=== PATIENT | female | born 1935 | race Caucasian/White ===

== ENCOUNTER 2017-11-02 19:47 | Observation (INO) ==
[2017-11-02 21:07] LABS: Albumin/Globulin Ratio 1.3 (1.1-2.2); Bilirubin,Total 0.4 mg/dL (0.3-1.0); Calcium 9.8 mg/dL (8.6-10.3); Globulin 3.2 g/dL (2.4-3.5); Potassium 4.3 mEq/L (3.5-5.1); Total Protein 7.2 g/dL (6.4-8.9)
[2017-11-02 21:21] LABS: Basophils % 0.3 %; Eosinophils # 0.2 K/mcL (0.0-0.6); Eosinophils % 1.8 %; Hematocrit 39.3 % (35.3-44.9); Hemoglobin 12.6 g/dL (11.5-15.4); Immature Granulocytes % 1.2 % (0-4); Lymphocytes # 1.9 K/mcL (0.6-4.6); Mean Corpuscular HGB Conc 32.1 g/dL (31.6-35.5); Mean Corpuscular Hemoglobin 31.3 pg (28.0-33.3); Mean Corpuscular Volume 97.8 fL (83.0-100.0); Mean Platelet Volume 11.2 fL (9.4-12.4); Monocytes # 0.5 K/mcL (0.0-1.3); Monocytes % 5.9 %; Neutrophils # 6.1 K/mcL (1.6-8.9); Platelet Count 224 K/mcL (140-400); Red Blood Count 4.02 M/mcL (3.82-4.97); Red Cell Distribution Width 18.1 % (11.5-14.5); Segmented Neutrophils % 68.8 %
[2017-11-02 21:22] LABS: Bilirubin,Urine Negative (Negative); Blood,Urine Trace (Negative); Clarity,Urine Cloudy (Clear); Color,Urine Yellow (Yellow); Glucose,Urine (UA) Normal (Normal); Ketones,Urine Negative (Negative); Leukocyte Esterase,Urine Small (Negative); Nitrite,Urine Negative (Negative); PH,Urine 5.5 pH Units (5.0-8.0); Protein,Urine >=300 mg/dL (Neg-Trace); Specific Gravity,Urine 1.022 (1.010-1.025); Urobilinogen,Urine Normal (Normal)
[2017-11-02 21:24] LABS: Bacteria,Urine None Seen per hpf (None-Few); RBC,Urine 0-3 per hpf (0-3); Squamous Epithelial Cell,Urine Many per lpf (None-Few); WBC,Urine 30-50 per hpf (0-3)
[2017-11-02 21:38] LABS: Amorphous Sediment,Urine Many (Few)
[2017-11-02] MEDS ORDERED: 0.9 % Sodium Chloride 1,000 ML IVC ONE (22:54)
[2017-11-03] MEDS ORDERED: Acetaminophen 325 MG TABLET PO PRN (01:17)
[2017-11-03] MEDS ORDERED: *HR* HYDROcodone/Acet 5/325 mg TABLET PO PRN (01:17)
[2017-11-03] MEDS ORDERED: Naloxone 0.4 MG/ML INJ IVP PRN (01:17)
[2017-11-03] MEDS ORDERED: 0.9 % Sodium Chloride 1,000 ML IVC SCH (01:30)
--- NOTE | 2017-11-03 01:34 | Internal Med History&Physical ---
Date of Encounter: 11/02/17 Time of Encounter: 23:00 Assessment and Plan (1) Syncope Current visit: Yes Status: Acute Place the pt into Tele for observation Recent syncopal episode could be due to dehydration related ortho static and vaso vagal reaction however concerning for arrhythmia / josue cardia EKG ordered Reviewed 2 D Echo from 09/20 showed preserved LVEF 60-65%, mild LVH noticed will check carotid doppler will get CT of head with no contrast check TSH level Held Metoprolol and Digoxin check Dig level Qualifiers: Qualified Code(s): R55 - Syncope and collapse (2) Bradycardia Current visit: Yes Status: Acute on the monitor her HR is fluctuating 45-55 held BB Metoprolol Held Digoxin cont close monitoring (3) Dehydration Current visit: Yes Status: Acute started on IV hydration (4) Constipation Current visit: Yes Status: Acute Reviewed CT of Abd showed constipation.. started on stool softeners Qualifiers: Constipation type: unspecified constipation type Qualified Code(s): K59.00 - Constipation, unspecified (5) [id number] kidney injury Current visit: No Status: Acute slightly elevated Cr @ 2.70 her baseline around 2.0 Held diuretics Bumex Avoid any nephrotoxic medication Qualifiers: Acute renal failure type: unspecified Chronic kidney disease stage: stage 4 (severe) Qualified Code(s): N17.9 - Acute kidney failure, unspecified; N18.4 - Chronic kidney disease, stage 4 (severe); N18.4 - Chronic kidney disease , stage 4 (severe); N18.4 - Chronic kidney disease, stage 4 (severe); N18.4 - Chronic kidney disease, stage 4 (severe) (6) DM type 2 (diabetes mellitus, type 2) Current visit: No Status: Chronic on ISS Qualifiers: Diabetes mellitus ferry terminal agent insulin use: without ferry terminal agent use Diabetes mellitus complication status: with kidney complications Diabetes mellitus complication detail: with chronic kidney disease Chronic kidney disease stage : stage 4 (severe) Qualified Code(s): E11.22 - Type 2 diabetes mellitus with diabetic chronic kidney disease; N18.4 - Chronic kidney disease, stage 4 (severe ); N18.4 - Chronic kidney disease, stage 4 (severe); N18.4 - Chronic kidney disease, stage 4 (severe); N18.4 - Chronic kidney disease, stage 4 (severe) (7) HTN (hypertension) Current visit: No Status: Chronic fairly controlled Held BB due to bradycardia will give Hydralazine PRN Qualifiers: Hypertension type: essential hypertension Qualified Code(s): I10 - Essential (primary) hypertension (8) Hyperlipidemia Current visit: No Status: Chronic Qualifiers: Hyperlipidemia type: unspecified Qualified Code(s): E78.5 - Hyperlipidemia , unspecified (9) Hypothyroidism Current visit: No Status: Chronic on levothyroxine Qualifiers: Hypothyroidism type: unspecified Qualified Code(s): E03.9 - Hypothyroidism , unspecified Internal Medicine - H&P: HPI Chief complaint: Constipation / generelized weakness / Syncope Admitted From: Emergency Dept Plans for Post Hospital Care: Home History of present illness: Ms. Flowers is a 82 year old female with known past medical history of hypertension, hyperlipidemia, hypothyroidism, diastolic congestive heart failure , chronic hypoxic respiratory failure, COPD, diabetes type II, CK D stage III and DVT currently on Coumadin for anticoagulation who is currently at rehab center was brought into the ER by EMS stating that patient has been having generalized weakness, lethargic and constipation from last 2 to 3 days. She also looks little confused today. Patient denied of any chest pain and shortness of breath. She does complaining about low back pain. Patient is alert, awake and Oriented to place and person. Patient's family at bedside, according to patient's family from last 6-8 months patient physical condition seems to be rapidly deteriorating. They also mentioned she had a syncopal episode a week ago at rehab center, and they are planning on doing elective CT of the head. Past Med Surg Social Fam HX - Past Medical History Medical history: arthritis, asthma, CHF, diabetes, GERD, hyperlipidemia, hypertension, renal disease, thyroid disease Psychiatric history: no psych history - Past Surgical History Surgical History: orthopedic, other - Social History Smoking Status: Never smoker Smokeless Tobacco Status: No Alcohol use: none Drug use: none - Family History Mother Adopted: No Family Member Ethnicity: Non- Living Status: Hx Family Cardiac Disorders: Yes Internal Medicine - H&P: Meds Allopurinol 300 mg PO DAILY 04/01/17 [History] Cranberry Conc/C/Bacill Coag [Cranberry Tablet] 1 each PO DAILY 04/01/17 [ History] Atorvastatin [Lipitor] 80 mg PO DAILY tab 04/08/17 [Rx] Cholecalciferol (D-3) [Vitamin D] 1,000 unit PO DAILY tab 04/08/17 [Rx] Digoxin [Lanoxin] 0.125 mg PO QOD #15 tab 04/22/17 [Rx] Doxazosin [Cardura] 8 mg PO HS #60 tablet 04/22/17 [Rx] MOM Conc [MILK OF MAGNESIA conc] 10 ml PO Q48H ud.liq 08/12/17 [Rx] Methyl Salicylate/Menthol [Bengay] 1 appl TP BID PRN tube 08/12/17 [Rx] Gabapentin [Neurontin] 100 mg PO BID capsule 08/29/17 [Rx] Acetaminophen [Tylenol] 500 mg PO Q6HR PRN 09/27/17 [History] Bumetanide [Bumex] 2 mg PO BIDDIURETIC tablet 09/27/17 [Rx] Isosorbide MONOnitrate (24 HR) [Imdur] 60 mg PO DAILY tab.er.24h 09/27/17 [Rx] Levothyroxine [Synthroid] 100 mcg PO DAILY@0630 tablet 09/27/17 [Rx] Metoprolol XL (24 HR) Succ [Toprol Xl] 25 mg PO DAILY tab.er.24h 09/27/17 [Rx] Omeprazole [PriLOSEC] 20 mg PO DAILY@0630 PRN capsule.dr 09/27/17 [Rx] HYDROcodone/Acet 5/325 mg [[place] 5-325 mg] 1 tab PO Q4HR PRN 14 Days #60 tablet 10/02/17 [Rx] Warfarin [Coumadin] 1.5 mg PO DAILY@1800 #0 tablet 10/02/17 [Rx] cloNIDine HCl [CloNIDine HCl] 0.6 mg PO Q8HR tablet 10/02/17 [Rx] 3 Allergy/AdvReac Type Severity Reaction Status Date / Time ibuprofen [From Motrin IB] AdvReac Hives Verified 03/31/17 09:24 Sulfa (Sulfonamide AdvReac Hives Verified 03/31/17 09:24 Antibiotics) All Systems PM: A 10-system review of systems was performed and is negative for pertinent findings except as documented above in the HPI. Review of systems: All the systems are reviewed everything is benign except the systems and symptoms I mentioned in the history of present illness - Constitutional Vitals: Temp Pulse Resp BP Pulse Ox 97.7 F 41 16 179/66 99 11/02/17 23:57 11/02/17 23:57 11/02/17 23:57 11/02/17 23:57 11/02/17 23:57 General appearance: Present: A&O X 3, answers questions appropriately Exam: Looks depressed, weak and very lethargic - Head Head exam: Present: atraumatic, normal inspection - Neck Neck exam general surgery: Present: supple - Respiratory Respiratory exam: Present: decreased breath sounds. Absent: rales, respiratory distress, rhonchi, wheezes - Cardiovascular Cardiovascular exam: Present: bradycardia, +S1, +S2. Absent: systolic murmur - GI/Abdominal GI/Abdominal exam: Present: normal bowel sounds, soft, tenderness (Mild discomfort in the lower abdomen region). Absent: rebound, rigid - Extremities Exam Extremities exam: Absent: calf tenderness, pedal edema, tenderness - Back Exam Back exam: Absent: CVA tenderness (L), CVA tenderness (R) - Neurological Exam Neurological exam: Present: alert, CN II-XII intact, oriented X3. Absent: pronater drift, facial droop, speech deficit - Psychiatric Psychiatric exam: Present: depressed - Skin Skin exam: Absent: rash Internal Med - H&P Results - Labs CBC & Chem 7: 11/03/17 01:42 11/03/17 01:42
[2017-11-03] MEDS: Sennosides/Docusate Sodium TABLET PO SCH ×3 (01:43→20:12)
[2017-11-03 01:52] LABS: Basophils % 0.3 %; Eosinophils # 0.2 K/mcL (0.0-0.6); Eosinophils % 2.4 %; Hematocrit 35.3 % (35.3-44.9); Hemoglobin 11.3 g/dL (11.5-15.4); Immature Granulocytes % 1.4 % (0-4); Lymphocytes # 2.1 K/mcL (0.6-4.6); Lymphocytes % 24.1 %; Mean Platelet Volume 11.2 fL (9.4-12.4); Monocytes # 0.6 K/mcL (0.0-1.3); Monocytes % 6.7 %; Neutrophils # 5.7 K/mcL (1.6-8.9); Platelet Count 203 K/mcL (140-400); Red Blood Count 3.64 M/mcL (3.82-4.97); Segmented Neutrophils % 65.1 %
[2017-11-03 01:57] LABS: INR 3.4; Prothrombin Time 37.3 Seconds (9.4-12.1)
[2017-11-03 02:13] LABS: BUN/Creatinine Ratio 29 (6-26); Blood Urea Nitrogen 71 mg/dL (8-23); Calcium 9.2 mg/dL (8.6-10.3); Carbon Dioxide 29 mEq/L (23-29); Chloride 102 mEq/L (98-107); Chol/HDL Ratio 8.1 (0-4.9); Cholesterol 153 mg/dL (< 200); Glucose 120 mg/dL (70-105); HDL Cholesterol 19 mg/dL (40-59); Magnesium 2.2 mg/dL (1.6-2.6); Osmolality,Calculated 312 (280-300); Sodium 140 mEq/L (136-145); Triglycerides 463 mg/dL (< 150); eGFR For African Americans 23 (> 60); eGFR For Non-African Americans 19 (> 60)
[2017-11-03 03:53] LABS: Thyroid Stimulating Hormone 0.537 mcIU/mL (0.340-5.600)
[2017-11-03] MEDS: Ondansetron 4 MG/2 ML VIAL IVP PRN (05:41)
--- NOTE | 2017-11-03 06:12 | Emergency Department Note ---
Disposition Clinical Impression: DOMINIQUE (acute kidney injury) Disposition: Admitted As Inpatient Condition: Good General Adult HPI - General Chief complaint: ED Abdominal Pain Stated complaint: abd pain Time Seen by Provider: 11/02/17 19:59 Source: patient, EMS Nursing Notes Reviewed: Yes Vital Signs Reviewed: Yes - History of Present Illness HPI Narrative: This is a 82-year-old female patient presents with concern for abdominal pain. She admits that her onset of abdominal pain was earlier today. She has not had a bowel movement in approximately one week. She admits to constipation. She also has had intermittent confusion. She does have chronic kidney disease. She has normal urinary output. She has no blood per rectum or vomiting. General: No acute distress HEENT: Pupils equal and reactive to light, extraoccular muscle movement is normal, TMS are clear bilaterally. Heart: RRR, No murmor rub or gallop Lungs: lungs clear, no wheezing, rales or ronchi. ABD: SNT, no focal areas or tenderness, no guarding or rebound tenderness. Extremities: No cyanosis, clubbing or edema Neuro: CN 2-12 in tact, no focal deficit. strength 5/5. Medical decision making Abdominal examination is non-peritoneal. There is moderate stool burning on CT scan. This is a by mouth contrast only CT scan of the patient has history of present illness. I think her intermittent confusion is related to worsening uremia. BUN is significantly elevated. Kidney function is also elevated. Plan to admit to the hospital after initiation of IV fluids for renal resuscitation. Pain Scale: 0 - Related Data Home Medications Medication Instructions Recorded Confirmed Allopurinol 300 mg PO DAILY 04/01/17 09/27/17 Cranberry Conc/C/Bacill Coag 1 each PO DAILY 04/01/17 09/27/17 [Cranberry Tablet] Acetaminophen [Tylenol] 500 mg PO Q6HR PRN 09/27/17 09/27/17 Previous Rx's Medication Instructions Recorded Atorvastatin [Lipitor] 80 mg PO DAILY tab 04/08/17 Cholecalciferol (D-3) [Vitamin D] 1,000 unit PO DAILY tab 04/08/17 Digoxin [Lanoxin] 0.125 mg PO QOD #15 tab 04/22/17 Doxazosin [Cardura] 8 mg PO HS #60 tablet 04/22/17 MOM Conc [MILK OF MAGNESIA conc] 10 ml PO Q48H ud.liq 08/12/17 Methyl Salicylate/Menthol [Bengay] 1 appl TP BID PRN tube 08/12/17 Gabapentin [Neurontin] 100 mg PO BID capsule 08/29/17 Bumetanide [Bumex] 2 mg PO BIDDIURETIC tablet 09/27/17 Isosorbide MONOnitrate (24 HR) 60 mg PO DAILY tab.er.24h 09/27/17 [Imdur] Levothyroxine [Synthroid] 100 mcg PO DAILY@0630 tablet 09/27/17 Metoprolol XL (24 HR) Succ [Toprol 25 mg PO DAILY tab.er.24h 09/27/17 Xl] Omeprazole [PriLOSEC] 20 mg PO DAILY@0630 PRN capsule.dr 09/27/17 HYDROcodone/Acet 5/325 mg [[place] 1 tab PO Q4HR PRN 14 Days #60 10/02/17 5-325 mg] tablet Warfarin [Coumadin] 1.5 mg PO DAILY@1800 #0 tablet 10/02/17 cloNIDine HCl [CloNIDine HCl] 0.6 mg PO Q8HR tablet 10/02/17 Allergies Allergy/AdvReac Type Severity Reaction Status Date / Time ibuprofen [From Motrin IB] AdvReac Hives Verified 03/31/17 09:24 Sulfa (Sulfonamide AdvReac Hives Verified 03/31/17 09:24 Antibiotics) All systems ED: reviewed and negative except as stated. Past Medical History - Past Medical History Medical history: Reports: arthritis, asthma, CHF, diabetes, GERD, hyperlipidemia , hypertension, renal disease, thyroid disease Surgical history: Reports: orthopedic, other Psychiatric history: Reports: no psych history - Social History Smoking Status: Never smoker Smokeless Tobacco Status: No Alcohol use: Reports: none Drug use: Reports: none Physical Exam - General General appearance: alert Course Vital Signs Temperature 97.9 F 11/02/17 19:53 Pulse Rate 60 11/02/17 19:53 Respiratory Rate 18 11/02/17 19:53 Blood Pressure 138/74 11/02/17 19:53 O2 Sat by Pulse Oximetry 99 11/02/17 19:53 Temperature 97.7 F 11/03/17 04:12 Pulse Rate 52 11/03/17 04:12 Respiratory Rate 16 11/03/17 04:12 Blood Pressure 148/63 11/03/17 04:12 O2 Sat by Pulse Oximetry 99 11/03/17 04:12 Oxygen Delivery Oxygen Delivery Room Air Medical Decision Making - Lab Data Result diagrams: 11/03/17 01:42 11/03/17 01:42 Lab Results 11/02/17 11/02/17 11/02/17 Range/Units 20:38 20:54 20:54 WBC 8.8 (4.3-11.1) K/mcL RBC 4.02 (3.82-4.97) M/mcL Hgb 12.6 (11.5-15.4) g/dL Hct 39.3 (35.3-44.9) % MCV 97.8 (83.0-100.0) fL MCH 31.3 (28.0-33.3) pg MCHC 32.1 (31.6-35.5) g/dL RDW 18.1 H (11.5-14.5) % Plt Count 224 (140-400) K/mcL MPV 11.2 (9.4-12.4) fL Immature Gran % 1.2 (0-4) % Seg Neutrophils % 68.8 % Lymphocytes % 22.0 % Monocytes % 5.9 % Eosinophils % 1.8 % Basophils % 0.3 % Neutrophils # 6.1 (1.6-8.9) K/mcL Lymphocytes # 1.9 (0.6-4.6) K/mcL Monocytes # 0.5 (0.0-1.3) K/mcL Eosinophils # 0.2 (0.0-0.6) K/mcL Basophils # 0.0 (0.0-0.2) K/mcL Sodium 138 (136-145) mEq/L Potassium 4.3 (3.5-5.1) mEq/L Chloride 100 (98-107) mEq/L Carbon Dioxide 29 (23-29) mEq/L BUN 75 H (8-23) mg/dL Creatinine 2.70 H (0.60-1.20) mg/dL Est GFR ( Amer) 21 L (> 60) Est GFR (Non-Af Amer) 17 L (> 60) BUN/Creatinine Ratio 28 H (6-26) Glucose 129 H (70-105) mg/dL Calculated Osmolality 310 H (280-300) Lactic Acid 1.2 (0.5-2.2) mmol/L Calcium 9.8 (8.6-10.3) mg/dL Total Bilirubin 0.4 (0.3-1.0) mg/dL AST 19 (13-39) Units/L ALT 12 (7-52) Units/L Alkaline Phosphatase 92 (34-104) Units/L Serum Total Protein 7.2 (6.4-8.9) g/dL Albumin 4.0 (3.5-5.7) g/dL Globulin 3.2 (2.4-3.5) g/dL Albumin/Globulin Ratio 1.3 (1.1-2.2) Lipase 39 (11-82) Units/L Urine Color (Yellow) Urine Clarity (Clear) Urine pH (5.0-8.0) pH Units Ur Specific [place] (1.010-1.025) Urine Protein (Neg-Trace) mg/dL Urine Glucose (UA) (Normal) mg/dL Urine Ketones (Negative) mg/dL Urine Blood (Negative) Urine Nitrite (Negative) Urine Bilirubin (Negative) Urine Urobilinogen (Normal) mg/dL Ur Leukocyte Esterase (Negative) Urine Microscopic RBC (0-3) per hpf Urine Microscopic WBC (0-3) per hpf Ur Squamous Epith Cells (None-Few) per lpf Amorphous Sediment (Few) Urine Bacteria (None-Few) per hpf Ur Culture Indicated? (NO) 11/02/17 Range/Units 21:10 WBC (4.3-11.1) K/mcL RBC (3.82-4.97) M/mcL Hgb (11.5-15.4) g/dL Hct (35.3-44.9) % MCV (83.0-100.0) fL MCH (28.0-33.3) pg MCHC (31.6-35.5) g/dL RDW (11.5-14.5) % Plt Count (140-400) K/mcL MPV (9.4-12.4) fL Immature Gran % (0-4) % Seg Neutrophils % % Lymphocytes % % Monocytes % % Eosinophils % % Basophils % % Neutrophils # (1.6-8.9) K/mcL Lymphocytes # (0.6-4.6) K/mcL Monocytes # (0.0-1.3) K/mcL Eosinophils # (0.0-0.6) K/mcL Basophils # (0.0-0.2) K/mcL Sodium (136-145) mEq/L Potassium (3.5-5.1) mEq/L Chloride (98-107) mEq/L Carbon Dioxide (23-29) mEq/L BUN (8-23) mg/dL Creatinine (0.60-1.20) mg/dL Est GFR ( Amer) (> 60) Est GFR (Non-Af Amer) (> 60) BUN/Creatinine Ratio (6-26) Glucose (70-105) mg/dL Calculated Osmolality (280-300) Lactic Acid (0.5-2.2) mmol/L Calcium (8.6-10.3) mg/dL Total Bilirubin (0.3-1.0) mg/dL AST (13-39) Units/L ALT (7-52) Units/L Alkaline Phosphatase (34-104) Units/L Serum Total Protein (6.4-8.9) g/dL Albumin (3.5-5.7) g/dL Globulin (2.4-3.5) g/dL Albumin/Globulin Ratio (1.1-2.2) Lipase (11-82) Units/L Urine Color Yellow (Yellow) Urine Clarity Cloudy A (Clear) Urine pH 5.5 (5.0-8.0) pH Units Ur Specific [place] 1.022 (1.010-1.025) Urine Protein >=300 H (Neg-Trace) mg/dL Urine Glucose (UA) Normal (Normal) mg/dL Urine Ketones Negative (Negative) mg/dL Urine Blood Trace H (Negative) Urine Nitrite Negative (Negative) Urine Bilirubin Negative (Negative) Urine Urobilinogen Normal (Normal) mg/dL Ur Leukocyte Esterase Small H (Negative) Urine Microscopic RBC 0-3 (0-3) per hpf Urine Microscopic WBC 30-50 H (0-3) per hpf Ur Squamous Epith Cells Many H (None-Few) per lpf Amorphous Sediment Many H (Few) Urine Bacteria None Seen (None-Few) per hpf Ur Culture Indicated? NO. (NO)
[2017-11-03] MEDS: *HR* Promethazine 25 MG/ML VIAL IVP PRN (08:50)
[2017-11-03] MEDS: Isosorbide MONOnitrate (24 HR) 60 MG TAB.ER.24H PO SCH (08:54)
[2017-11-03] MEDS: Gabapentin 100 MG CAPSULE PO SCH ×2 (08:54→20:12)
--- NOTE | 2017-11-03 11:02 | Internal Med Progress Note ---
Date of Encounter: 11/03/17 Time of Encounter: 11:09 - Assessment and plan (1) DM type 2 (diabetes mellitus, type 2) Current Visit: Yes Status: Chronic Assessment and plan: continue sliding scale patient is NPO Qualifiers: Diabetes mellitus fpc insulin use: without fpc use Diabetes mellitus complication status: with kidney complications Diabetes mellitus complication detail: with chronic kidney disease Chronic kidney disease stage : stage 4 (severe) Qualified Code(s): E11.22 - Type 2 diabetes mellitus with diabetic chronic kidney disease; N18.4 - Chronic kidney disease, stage 4 (severe ); N18.4 - Chronic kidney disease, stage 4 (severe); N18.4 - Chronic kidney disease, stage 4 (severe); N18.4 - Chronic kidney disease, stage 4 (severe) (2) Hypothyroidism Current Visit: Yes Status: Chronic Assessment and plan: continue home meds Qualifiers: Hypothyroidism type: unspecified Qualified Code(s): E03.9 - Hypothyroidism , unspecified (3) Hyperlipidemia Current Visit: Yes Status: Chronic Assessment and plan: continue home meds, lipid panel noted, uncontrolled Qualifiers: Hyperlipidemia type: unspecified Qualified Code(s): E78.5 - Hyperlipidemia , unspecified (4) Efvjx-[id number]-rqwlycv kidney injury Current Visit: Yes Status: Acute Assessment and plan: Improving, continue IVF. Hx of CKD III, continue to hold diuretics Qualifiers: Acute renal failure type: unspecified Chronic kidney disease stage: stage 4 (severe) Qualified Code(s): N17.9 - Acute kidney failure, unspecified; N18.4 - Chronic kidney disease, stage 4 (severe); N18.4 - Chronic kidney disease , stage 4 (severe); N18.4 - Chronic kidney disease, stage 4 (severe); N18.4 - Chronic kidney disease, stage 4 (severe) (5) HTN (hypertension) Current Visit: No Status: Chronic Qualifiers: Hypertension type: essential hypertension Qualified Code(s): I10 - Essential (primary) hypertension (6) Syncope Current Visit: Yes Status: Acute Assessment and plan: continue tele EKG not found on chart, patient is bradycardic, obtain EKG Reviewed 2 D Echo from 09/20 showed preserved LVEF 60-65%, mild LVH noticed Carotid doppler is pending TSH is WNL Follow remaining work up Head CT is negative Qualifiers: Syncope type: unspecified Qualified Code(s): R55 - Syncope and collapse (7) Bradycardia Current Visit: Yes Status: Acute Assessment and plan: HR is acceptable ebtween 40-61 Continue home emds Digoixn level is 1.0 (8) Constipation Current Visit: Yes Status: Chronic Assessment and plan: FOund on CT Continue stool softeners Qualifiers: Constipation type: unspecified constipation type Qualified Code(s): K59.00 - Constipation, unspecified (9) Dysphagia Current Visit: Yes Status: Acute Assessment and plan: Patient also has a history of dysphagia and underwent a barium swallow prior to admission on secondary panel, reports show severe esophageal pathology, rotation and retropulsion of dye throughout the esophagus with high risk for aspiration. There is a stricture/narrowing and above that the esophagus is dilated to 10. Dysmotility is also evident. She has a history of esophageal stricture status post dilatation in the remote past. We will consult gastroenterology NPO from now till GI eval. Qualifiers: Dysphagia type: pharyngoesophageal phase Qualified Code(s): R13.14 - Dysphagia, pharyngoesophageal phase - Time Spent With Patient Total time spent is greater than 50% in coordination of care (as documented) at patient's floor/unit and/or counseling patient: - Subjective Interval history: Seen and evaluated at the bedside. 10-year-old female resident who is admitted for syncope, constipation, acute on chronic kidney injury, and bradycardia. It is not certain if her bradycardia symptomatic. No syncope associated bradycardia. Heart rate since admission has ranged from 40 once a 51. Admitting team had held her digoxin and metoprolol. Patient has a very flat affect on evaluation, speaks minimally, however she noticed a year, the president, and is oriented to person. - Constitutional Vitals: Temp Pulse Resp BP Pulse Ox 98.1 F 51 16 153/61 98 11/03/17 06:50 11/03/17 06:50 11/03/17 06:50 11/03/17 06:50 11/03/17 06:50 General appearance: Present: A&O X 3, no acute distress, answers questions appropriately - Head Head exam: Present: atraumatic, normocephalic - Eye Eye exam: Present: PERRL, conjuntiva pink, sclera anicteric Pupils: Present: PERRL - Neck Neck exam general surgery: Present: supple, trachea midline. Absent: lymphadenopathy - Respiratory Respiratory exam: Present: CTAB. Absent: accessory muscle use, rales, rhonchi, wheezes - Cardiovascular Cardiovascular exam: Present: bradycardia, +S1, +S2. Absent: diastolic murmur, gallop, rubs, systolic murmur - GI/Abdominal GI/Abdominal exam: Present: normal bowel sounds, soft, no peritoneal signs. Absent: distended, tenderness - Extremities Exam Extremities exam: Present: warm, radial pulses palpable and symmetrical. Absent : calf tenderness, cyanotic, pedal edema - Neurological Exam Neurological exam: Present: alert, CN II-XII intact, oriented X3, no focal deficits. Absent: pronater drift, facial droop, speech deficit - Skin Skin exam: Present: dry, intact Internal Medicine: Result - Labs CBC & Chem 7: 11/03/17 01:42 11/03/17 01:42 Labs: Short CBC 11/03/17 Range/Units 01:42 WBC 8.7 (4.3-11.1) K/mcL Hgb 11.3 L (11.5-15.4) g/dL Hct 35.3 (35.3-44.9) % Plt Count 203 (140-400) K/mcL Neutrophils # 5.7 (1.6-8.9) K/mcL BMP 11/03/17 01:42 Sodium 140 Potassium 4.0 Chloride 102 Carbon Dioxide 29 BUN 71 H Creatinine 2.45 H Glucose 120 H Calcium 9.2 - ABG Interpretation ABG results: PT/INR, D-dimer PT 37.3 Seconds (9.4-12.1) H 11/03/17 01:42 - Impressions Impressions Head CT 11/03/17 07:30 IMPRESSION: 1. Stable chronic ischemic changes and findings suggesting remote insults. No CT evidence for acute intracranial process. 2. Nonspecific left mastoid effusion. D/ / Aguila Lowry / Aguila Lowry Interpreting Provider: Aguila Lowry Consult Discharge Plan - Plan Referrals: Agustina Orlando MD [Primary Care Provider] -
--- NOTE | 2017-11-03 12:16 | Gastroenterology Consult Note ---
<Carla Gilmore Kyle - Last Filed: 11/03/17 15:47> Date of Encounter: 11/03/17 Time of Encounter: 12:11 - Assessment and plan (1) Dysphagia Status: Acute Assessment and plan: 82-year-old female admitted for syncope, constipation, DOMINIQUE, and bradycardia. Recently being worked up for dysphagia as an outpatient. -Barium swallow on 11/02/2017 demonstrating severe esophageal pathology, retention , and retropulsion of dye throughout the esophagus. -Outpatient recommendations for gastroenterology consultation. -Patient's altered mental status makes it difficult to elicit any recent information. -We will discuss with Dr. Levy the need for inpatient EGD evaluation. Qualifiers: Dysphagia type: pharyngoesophageal phase Qualified Code(s): R13.14 - Dysphagia, pharyngoesophageal phase (2) Constipation Status: Chronic Assessment and plan: CT of the abdomen and pelvis on 11/02/2017 demonstrates moderate constipation. -Patient currently receiving docusate, sennosides, and miralax. Qualifiers: Constipation type: unspecified constipation type Qualified Code(s): K59.00 - Constipation, unspecified (3) Ytjty-zk-[id number] kidney injury Status: Acute Assessment and plan: Management per primary team. Qualifiers: Acute renal failure type: unspecified Chronic kidney disease stage: stage 4 (severe) Qualified Code(s): N17.9 - Acute kidney failure, unspecified; N18.4 - Chronic kidney disease, stage 4 (severe); N18.4 - Chronic kidney disease , stage 4 (severe); N18.4 - Chronic kidney disease, stage 4 (severe); N18.4 - Chronic kidney disease, stage 4 (severe) - Time Spent With Patient Total time spent is greater than 50% in coordination of care (as documented) at patient's floor/unit and/or counseling patient: GI History of Present Illness - Data of Consult Patient: known to practice within the last 3 years Consult date: 11/03/17 Requesting Physician: Bismark Polo MD - Consult Narrative Reason for consult: esophageal stricture, dilatation, dysphagia History of present illness: Ms. 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 Patient lives in a senior care and was brought to [facility] on 09/2017 via EMS after developing symptoms of generalized weakness, lethargy, and constipation for the past 2-3 days. She was admitted for syncope, constipation, acute on chronic kidney injury, and bradycardia. Patient's hospital course has been complicated secondary to her apparent disorientation. Patient currently lives at [facility]. She was in the process of being worked up for dysphagia. Patient visited [facility] on 11/02/2017. Studies completed there including MBSS demonstrate severe esophageal pathology, retention, and retropulsion of dye throughout the esophagus. She was found to be high risk for aspiration. A stricture is noted and above that the esophagus is dilated with retained bolus. Dysmotility evident. They recommended a GI consultation. This morning, patient is alert, yet only oriented to her name. She denies any difficulty with swallowing. She denies any difficulty eating or drinking. She is unable to provide any meaningful information and appears very confused. Review of her past medical records demonstrate that she was a patient of Dr. Olvera in 2013 for fecal incontinence. A colonoscopy was ordered at that time. Colonoscopy: Unclear, colonoscopy ordered in [address] Olvera Past Med Surg Social Fam HX - Past Medical History Source: old records reviewed, nursing notes reviewed, other (Patient unable to provide meaningful information as she appears to have dementia) Medical history: arthritis, asthma, CHF, diabetes, GERD, hyperlipidemia, hypertension, renal disease, thyroid disease Psychiatric history: no psych history - Past Surgical History Surgical History: orthopedic, other - Social History Smoking Status: Never smoker Smokeless Tobacco Status: No Alcohol use: none Drug use: none - Family History Mother Adopted: No Family Member Ethnicity: Non- Living Status: Hx Family Cardiac Disorders: Yes - Gastrointestinal NSAID use: None Anticoagulation Use: Coumadin Number of BM Per Day: Unclear Gastrointestinal: Absent: abdominal pain, constipation, diarrhea, hematochezia, melena, nausea, vomiting - Constitutional Constitutional: no fever(s), no weight gain - EENT Nose, mouth and throat: Absent: dysphagia (patient denies) - Cardiovascular Cardiovascular ROS: Absent: chest pain, irregular heart rhythm, palpitations - Respiratory Respiratory IM: Absent: cough, dyspnea - Genitourinary Genitourinary: Absent: Urinary frequency - Neurological ROS Neurological GI: Present: confusion - Integumentary Integumentary GI: Absent: pruritis - Constitutional Vitals: Temp Pulse Resp BP Pulse Ox 98.1 F 51 16 153/61 98 11/03/17 06:50 11/03/17 06:50 11/03/17 06:50 11/03/17 06:50 11/03/17 06:50 General appearance: Present: A&O X 1, pleasant, no acute distress. Absent: answers questions appropriately - Head Head exam: Present: atraumatic, normocephalic - Eye Eye exam: Present: normal appearance, sclera anicteric - Neck Neck exam general surgery: Present: normal inspection, trachea midline - Respiratory Respiratory exam: Present: CTAB - Cardiovascular Cardiovascular exam: Present: RRR, +S1, +S2 - GI/Abdominal GI/Abdominal exam: Present: normal bowel sounds, soft, no peritoneal signs. Absent: firm, guarding, tenderness - Extremities Exam Extremities exam: Present: warm. Absent: pedal edema - Neurological Exam Neurological exam: Present: no focal deficits - Skin Skin exam: Present: dry, intact, normal color, warm Results - Labs CBC & Chem 7: 11/03/17 01:42 11/03/17 01:42 Labs: Last Result Calcium 9.2 mg/dL (8.6-10.3) 11/03/17 01:42 Triglycerides 463 mg/dL (< 150) H 11/03/17 01:42 Entire Visit Hgb 11.3 g/dL (11.5-15.4) L 11/03/17 01:42 Hct 35.3 % (35.3-44.9) 11/03/17 01:42 PT 37.3 Seconds (9.4-12.1) H 11/03/17 01:42 Total Bilirubin 0.4 mg/dL (0.3-1.0) 11/02/17 20:38 AST 19 Units/L (13-39) 11/02/17 20:38 ALT 12 Units/L (7-52) 11/02/17 20:38 Lipase 39 Units/L (11-82) 11/02/17 20:38 - ABG ABG results: PT/INR, D-dimer PT 37.3 Seconds (9.4-12.1) H 11/03/17 01:42 - Impressions Impressions Head CT 11/03/17 07:30 IMPRESSION: 1. Stable chronic ischemic changes and findings suggesting remote insults. No CT evidence for acute intracranial process. 2. Nonspecific left mastoid effusion. D/ / Aguila Lowry / Aguila Lowry Interpreting Provider: Aguila Lowry Consult Discharge Plan - Plan Referrals: Agustina Orlando MD [Primary Care Provider] - <Octaviano Levy - Last Filed: 11/23/17 07:28> Date of Encounter: 11/03/17 - Time Spent With Patient Total time spent is greater than 50% in coordination of care (as documented) at patient's floor/unit and/or counseling patient: GI History of Present Illness - Data of Consult Requesting Physician: Bismark Polo MD - Consult Narrative History of present illness: Ms. Flowers is a 82 year old female - Constitutional Vitals: Temp Pulse Resp BP Pulse Ox 97.6 F 51 12 137/77 99 11/07/17 11:00 11/07/17 11:00 11/07/17 11:00 11/07/17 11:00 11/07/17 11:00 Results - Labs CBC & Chem 7: 11/07/17 05:39 11/07/17 05:39 Labs: Last Result Calcium 9.3 mg/dL (8.6-10.3) 11/07/17 05:39 Triglycerides 463 mg/dL (< 150) H 11/03/17 01:42 Entire Visit Hgb 11.1 g/dL (11.5-15.4) L 11/07/17 05:39 Hct 34.9 % (35.3-44.9) L 11/07/17 05:39 PT 43.5 Seconds (9.4-12.1) H* 11/07/17 05:39 Total Bilirubin 0.4 mg/dL (0.3-1.0) 11/02/17 20:38 AST 19 Units/L (13-39) 11/02/17 20:38 ALT 12 Units/L (7-52) 11/02/17 20:38 Lipase 39 Units/L (11-82) 11/02/17 20:38 - ABG ABG results: PT/INR, D-dimer PT 43.5 Seconds (9.4-12.1) H* 11/07/17 05:39 - Attending Attestation Ms. Lionel Herrmann 89-year-old white female who comes in with an comes in with anemia dysphagia is unclear whether she had a colonoscopy in 2013 recommend EGD when stable and then make further recommendations I examined this patient and my medical decision-making was reviewed with the Resident Physician. I agree with the documented findings, disposition and treatment plan as described except to the extent set forth below.
[2017-11-03] MEDS ORDERED: Warfarin perPT PO PRN (18:00)
[2017-11-04 05:40] LABS: INR 3.4; Prothrombin Time 37.5 Seconds (9.4-12.1)
[2017-11-04 05:56] LABS: Calcium 9.1 mg/dL (8.6-10.3); Potassium 4.4 mEq/L (3.5-5.1)
[2017-11-04] MEDS: Sennosides/Docusate Sodium TABLET PO SCH ×2 (08:58→20:46)
[2017-11-04] MEDS: Gabapentin 100 MG CAPSULE PO SCH ×2 (08:58→20:46)
[2017-11-04] MEDS: *HR* Digoxin 0.125 MG TABLET PO SCH ×2 (08:58→09:01)
[2017-11-04] MEDS: Isosorbide MONOnitrate (24 HR) 60 MG TAB.ER.24H PO SCH (08:58)
[2017-11-04] MEDS: Metoprolol XL (24 HR) Succ 25 MG TAB.ER.24H PO SCH (08:58)
[2017-11-04] MEDS: Bumetanide 1 MG TABLET PO SCH (08:58)
[2017-11-04] MEDS: Cholecalciferol (D-3) 1,000 UNIT TABLET PO SCH (08:59)
[2017-11-04] MEDS: Multivit/Ca/Min/Fe/FA 1 TAB TABLET PO SCH (08:59)
--- NOTE | 2017-11-04 12:44 | Internal Med Progress Note ---
Date of Encounter: 11/04/17 Time of Encounter: 15:40 - Assessment and plan (1) DM type 2 (diabetes mellitus, type 2) Current Visit: Yes Status: Chronic Assessment and plan: continue sliding scale started on pureed diet star on basal and prandial insulin as well as correctional dose insulin Qualifiers: Diabetes mellitus machine long goods helper insulin use: without machine long goods helper use Diabetes mellitus complication status: with kidney complications Diabetes mellitus complication detail: with chronic kidney disease Chronic kidney disease stage : stage 4 (severe) Qualified Code(s): E11.22 - Type 2 diabetes mellitus with diabetic chronic kidney disease; N18.4 - Chronic kidney disease, stage 4 (severe ); N18.4 - Chronic kidney disease, stage 4 (severe); N18.4 - Chronic kidney disease, stage 4 (severe); N18.4 - Chronic kidney disease, stage 4 (severe) (2) Hypothyroidism Current Visit: Yes Status: Chronic Assessment and plan: continue home meds Qualifiers: Hypothyroidism type: unspecified Qualified Code(s): E03.9 - Hypothyroidism , unspecified (3) Hyperlipidemia Current Visit: Yes Status: Chronic Assessment and plan: continue home meds, lipid panel noted, uncontrolled Qualifiers: Hyperlipidemia type: unspecified Qualified Code(s): E78.5 - Hyperlipidemia , unspecified (4) Aepyj-io-hmwkcfx kidney injury Current Visit: Yes Status: Acute Assessment and plan: Improving, discontinue IVF. Hx of CKD III, continue to hold diuretics Qualifiers: Acute renal failure type: unspecified Chronic kidney disease stage: stage 4 (severe) Qualified Code(s): N17.9 - Acute kidney failure, unspecified; N18.4 - Chronic kidney disease, stage 4 (severe); N18.4 - Chronic kidney disease , stage 4 (severe); N18.4 - Chronic kidney disease, stage 4 (severe); N18.4 - Chronic kidney disease, stage 4 (severe) (5) HTN (hypertension) Current Visit: Yes Status: Chronic Assessment and plan: continue home meds, except diuretics Qualifiers: Hypertension type: essential hypertension Qualified Code(s): I10 - Essential (primary) hypertension (6) Syncope Current Visit: Yes Status: Acute Assessment and plan: continue tele EKG shows bradycardia Reviewed 2 D Echo from 09/20 showed preserved LVEF 60-65%, mild LVH noticed Carotid doppler is pending TSH is WNL Follow remaining work up Head CT is negative Qualifiers: Syncope type: unspecified Qualified Code(s): R55 - Syncope and collapse (7) Bradycardia Current Visit: Yes Status: Acute Assessment and plan: HR is acceptable ebtween 40-61 Continue home emds Digoixn level is 1.0 (8) Constipation Current Visit: Yes Status: Chronic Assessment and plan: FOund on CT Continue stool softeners, start scheduled senna BID Qualifiers: Constipation type: unspecified constipation type Qualified Code(s): K59.00 - Constipation, unspecified (9) Dysphagia Current Visit: Yes Status: Acute Assessment and plan: Patient also has a history of dysphagia and underwent a barium swallow prior to admission on secondary panel, reports show severe esophageal pathology, rotation and retropulsion of dye throughout the esophagus with high risk for aspiration. There is a stricture/narrowing and above that the esophagus is dilated to 10. Dysmotility is also evident. She has a history of esophageal stricture status post dilatation in the remote past. GI eval noted EGD today showed obstructing Schatki ring with chronic gastritis Biopsy contraindicated due to INR of 3.4 Per GI, patient will be on pureed diet for life and for repeat EGD later when INR has been adressed and as outpatient Aspiration precautions Qualifiers: Dysphagia type: pharyngoesophageal phase Qualified Code(s): R13.14 - Dysphagia, pharyngoesophageal phase - Time Spent With Patient Total time spent is greater than 50% in coordination of care (as documented) at patient's floor/unit and/or counseling patient: - Subjective Interval history: Seen and evaluated at the bedside. 10-year-old female resident who is admitted for syncope, constipation, acute on chronic kidney injury, and bradycardia. It is not certain if her bradycardia symptomatic. No syncope associated bradycardia. Heart rate since admission has ranged from 40 to 60. Admitting team had held her digoxin and metoprolol, resumed this a.m Patient is a bit more talkative this a.m, awaiting EGD for dyaphagia - Constitutional Vitals: Temp Pulse Resp BP Pulse Ox 98.1 F 64 16 131/65 98 11/04/17 11:49 11/04/17 11:49 11/04/17 11:49 11/04/17 11:49 11/04/17 11:49 General appearance: Present: A&O X 3, no acute distress, answers questions appropriately - Head Head exam: Present: atraumatic, normocephalic - Eye Eye exam: Present: PERRL, conjuntiva pink, sclera anicteric Pupils: Present: PERRL - Neck Neck exam general surgery: Present: supple, trachea midline. Absent: lymphadenopathy - Respiratory Respiratory exam: Present: CTAB. Absent: accessory muscle use, rales, rhonchi, wheezes - Cardiovascular Cardiovascular exam: Present: RRR, +S1, +S2. Absent: diastolic murmur, gallop, rubs, systolic murmur - GI/Abdominal GI/Abdominal exam: Present: normal bowel sounds, soft, no peritoneal signs. Absent: distended, tenderness - Extremities Exam Extremities exam: Present: warm, radial pulses palpable and symmetrical. Absent : calf tenderness, cyanotic, pedal edema - Neurological Exam Neurological exam: Present: alert, CN II-XII intact, oriented X3, no focal deficits. Absent: pronater drift, facial droop, speech deficit - Skin Skin exam: Present: dry, intact Internal Medicine: Result - Labs CBC & Chem 7: 11/03/17 01:42 11/04/17 04:12 Labs: BMP 11/04/17 04:12 Sodium 142 Potassium 4.4 Chloride 104 Carbon Dioxide 30 H BUN 62 H Creatinine 2.11 H Glucose 88 Calcium 9.1 - ABG Interpretation ABG results: PT/INR, D-dimer PT 37.5 Seconds (9.4-12.1) H 11/04/17 04:12 Consult Discharge Plan - Plan Referrals: Agustina Orlando MD [Primary Care Provider] -
[2017-11-04] MEDS ORDERED: Lidocaine -MPF 2% 2 ML VIAL ONE (13:10)
[2017-11-04] MEDS ORDERED: *HR* Propofol 200 MG/20 ML VIAL IVP ONE (13:10)
--- NOTE | 2017-11-04 14:19 | Anesthesia Evaluation PreOp ---
Date of Encounter: 11/04/17 Time of Encounter: 14:17 - Past History Cardiac History: HTN, Hyperlipidemia, Other (EF 60%) Pulmonary History: COPD, Other (hx of hypoxemic resp failure, in no resp distress at the moment and is nasal canula) Other Medical History: Renal (acute on chronic kidney disease), Diabetes Type II , Thyroid (hypothyroidism) Anesthesia History: No Prior Anesthetic Complications, Past Anesthesia (knee) Alcohol Use: none Drug use: none Medications and Allergies Allopurinol [Zyloprim] 300 mg PO DAILY #0 04/01/17 [History] Cranberry Conc/C/Bacill Coag [Cranberry Tablet] 1 each PO DAILY 04/01/17 [ History] Atorvastatin [Lipitor] 80 mg PO DAILY tab 04/08/17 [Rx] Cholecalciferol (D-3) [Vitamin D] 1,000 unit PO DAILY tab 04/08/17 [Rx] Digoxin [Lanoxin] 0.125 mg PO QOD #15 tab 04/22/17 [Rx] Doxazosin [Cardura] 8 mg PO HS #60 tablet 04/22/17 [Rx] MOM Conc [MILK OF MAGNESIA conc] 10 ml PO Q48H ud.liq 08/12/17 [Rx] Methyl Salicylate/Menthol [Bengay] 1 appl TP BID PRN tube 08/12/17 [Rx] Gabapentin [Neurontin] 100 mg PO BID capsule 08/29/17 [Rx] Acetaminophen [Tylenol] 500 mg PO Q6HR PRN 09/27/17 [History] Isosorbide MONOnitrate (24 HR) [Imdur] 60 mg PO DAILY tab.er.24h 09/27/17 [Rx] Levothyroxine [Synthroid] 100 mcg PO DAILY@0630 tablet 09/27/17 [Rx] Metoprolol XL (24 HR) Succ [Toprol Xl] 25 mg PO DAILY tab.er.24h 09/27/17 [Rx] Omeprazole [PriLOSEC] 20 mg PO DAILY@0630 PRN capsule.dr 09/27/17 [Rx] HYDROcodone/Acet 5/325 mg [Salem 5-325 mg] 1 tab PO Q4HR PRN 14 Days #60 tablet 10/02/17 [Rx] Warfarin [Coumadin] 1.5 mg PO DAILY@1800 #0 tablet 10/02/17 [Rx] cloNIDine HCl [CloNIDine HCl] 0.6 mg PO Q8HR tablet 10/02/17 [Rx] Amoxicillin/Clavulanate [Augmentin] 250 mg PO BID 11/03/17 [History] Bumetanide [Bumex] 1 mg PO DAILY 11/03/17 [History] Multivit-Min/FA/Lycopen/Lutein [A Thru Z Select Multivit Tab] 1 tab PO DAILY 10/18 [History] 3 Allergy/AdvReac Type Severity Reaction Status Date / Time ibuprofen [From Motrin IB] AdvReac Hives Verified 03/31/17 09:24 Sulfa (Sulfonamide AdvReac Hives Verified 03/31/17 09:24 Antibiotics) - Meds/Allergy Pre-op Review Medications Reviewed: Yes Allergies Reviewed: Yes Beta Blockers on Current Med List: Yes If Beta Blockers taken, Date/Time (Last Dose taken): 858am today Anesthesia Results - Labs 11/03/17 01:42 11/04/17 04:12 Anesthesia Exam Vital Signs/O2 Sat, Most Current Temp Pulse Resp BP Pulse Ox 98.1 F 70 16 189/73 98 11/04/17 14:00 11/04/17 14:00 11/04/17 14:00 11/04/17 14:00 11/04/17 14:00 Weight: 79kg NPO (# of Hours): >8 - HEENT Pupil (Motor): Pupils equal, EOMI Mallampati: III Teeth: Poor dentition Oral Opening: Greater than 3 - PAINT STRIPPER LOC: Oriented PAINT STRIPPER Motor: Normal RUE, Normal LUE, Normal RLE, Normal LLE, Normal Face PAINT STRIPPER Sensory: Normal: RUE, LUE, RLE, LLE, Face - Cardiac Rhythm: Regular - Pulmonary Breath Sounds: bilateral Clear Anesthesia Assess/Plan ASA Score: 3 Modified Kristyn Scale for Level of Consciousness: Cooperative, oriented, and tranquil Anesthetic Plan: MAC Monitoring Plan: Standard Monitors Recovery Plan: PACU
--- NOTE | 2017-11-04 14:48 | Anesthesia Evaluation Post Op ---
Date of Encounter: 11/04/17 Time of Encounter: 14:48 - Vital Signs Vital Signs: Vital Signs/O2 Sat/Glucose, Most Recent Temp Pulse Resp BP Pulse Ox 98.1 F 70 16 189/73 98 11/04/17 14:00 11/04/17 14:00 11/04/17 14:00 11/04/17 14:00 11/04/17 14:00 Blood Glucose* 92 - Lungs Lungs: Clear Ascult./Percussion - Airway Airway: Non-obstructed - Cardiovascular Regular Rate, Baseline Rhythm - Mental Status Mental Status: Asleep with brisk response to light stimulation, Baseline Status - Pain Pain Scale: 0 Pain Scale used: Numeric (1 - 10) - Nausea Vomiting Nausea Vomiting: Not Present - Hydration Hydration: NPO Notes: 11/04/17 14:39 naac - Discharge PostOp Status: Transfer Patient to floor
[2017-11-04] MEDS: Ondansetron 4 MG/2 ML VIAL IVP PRN (15:28)
[2017-11-04] MEDS: *HR* Promethazine 25 MG/ML VIAL IVP PRN (18:48)
[2017-11-05 05:00] LABS: Basophils % 0.5 %; Eosinophils # 0.3 K/mcL (0.0-0.6); Eosinophils % 3.6 %; Hematocrit 36.4 % (35.3-44.9); Hemoglobin 11.2 g/dL (11.5-15.4); Lymphocytes # 1.8 K/mcL (0.6-4.6); Lymphocytes % 22.8 %; Mean Corpuscular HGB Conc 30.8 g/dL (31.6-35.5); Mean Corpuscular Hemoglobin 30.4 pg (28.0-33.3); Mean Corpuscular Volume 98.9 fL (83.0-100.0); Mean Platelet Volume 11.4 fL (9.4-12.4); Monocytes # 0.5 K/mcL (0.0-1.3); Monocytes % 6.9 %; Neutrophils # 5.1 K/mcL (1.6-8.9); Platelet Count 180 K/mcL (140-400); Red Blood Count 3.68 M/mcL (3.82-4.97); Segmented Neutrophils % 65.2 %
[2017-11-05 05:16] LABS: Calcium 9.4 mg/dL (8.6-10.3); Potassium 4.1 mEq/L (3.5-5.1)
[2017-11-05 05:22] LABS: INR 3.3; Prothrombin Time 36.6 Seconds (9.4-12.1)
[2017-11-05] MEDS: Sennosides/Docusate Sodium TABLET PO SCH ×2 (08:14→21:10)
[2017-11-05] MEDS: Isosorbide MONOnitrate (24 HR) 60 MG TAB.ER.24H PO SCH (08:14)
[2017-11-05] MEDS: Multivit/Ca/Min/Fe/FA 1 TAB TABLET PO SCH (08:15)
[2017-11-05] MEDS: Gabapentin 100 MG CAPSULE PO SCH (08:15)
[2017-11-05] MEDS: Metoprolol XL (24 HR) Succ 25 MG TAB.ER.24H PO SCH (08:15)
[2017-11-05] MEDS: Cholecalciferol (D-3) 1,000 UNIT TABLET PO SCH (08:15)
[2017-11-05] MEDS: Bumetanide 1 MG TABLET PO SCH (08:15)
[2017-11-05] MEDS ORDERED: cloNIDine HCl 0.1 MG TABLET PO SCH (09:00)
--- NOTE | 2017-11-05 11:07 | Gastroenterology Progress Note ---
<Carla Gilmore - Last Filed: 11/05/17 13:54> Date of Encounter: 11/05/17 Time of Encounter: 11:05 - Assessment and plan (1) Dysphagia Status: Acute Assessment and plan: 82-year-old female admitted for syncope, constipation, DOMINIQUE, and bradycardia. Recently being worked up for dysphagia as an outpatient. -Barium swallow on 11/02/2017 demonstrating severe esophageal pathology, retention , and retropulsion of dye throughout the esophagus. -Outpatient recommendations for gastroenterology consultation. -Patient's altered mental status makes it difficult to elicit any recent information. -EGD on 11/04/2017 demonstrates obstruting Schatzki ring, 3 cm hiatal hernia, chronic gastritis without biopsies secondary to coagulation. -Recommend continuing pureed diet indefinitely with repeat upper endoscopy at appointment to be scheduled when off of warfarin as patient needs esophageal dilation. -Needs to FU with Dr. Levy as an outpatient in 3 weeks. Qualifiers: Dysphagia type: esophageal phase Qualified Code(s): R13.10 - Dysphagia, unspecified (2) Constipation Status: Chronic Assessment and plan: CT of the abdomen and pelvis on 11/02/2017 demonstrates moderate constipation. -Patient currently receiving docusate, sennosides, and miralax. Qualifiers: Constipation type: unspecified constipation type Qualified Code(s): K59.00 - Constipation, unspecified (3) Ncefa-nz-xdfgfwc kidney injury Status: Acute Assessment and plan: Management per primary team. Qualifiers: Acute renal failure type: unspecified Chronic kidney disease stage: stage 4 (severe) Qualified Code(s): N17.9 - Acute kidney failure, unspecified; N18.4 - Chronic kidney disease, stage 4 (severe); N18.4 - Chronic kidney disease , stage 4 (severe); N18.4 - Chronic kidney disease, stage 4 (severe); N18.4 - Chronic kidney disease, stage 4 (severe) - Time Spent With Patient Total time spent is greater than 50% in coordination of care (as documented) at patient's floor/unit and/or counseling patient: - Subjective Interval history: Patient continues to be altered, AOx2. More talkative. Reports mild abdominal discomfort. Denies chest pain, SOB, palpitations, fatigue, lightheadedness, dizziness, nausea, diarrhea, vomitting, dysuria, or headache. - Constitutional Vitals: Temp Pulse Resp BP Pulse Ox 98.1 F 64 17 114/50 99 11/05/17 06:50 11/05/17 06:50 11/05/17 06:50 11/05/17 10:53 11/05/17 06:50 General appearance: Present: A&O X 1, pleasant, no acute distress. Absent: answers questions appropriately - Head Head exam: Present: atraumatic, normocephalic - Eye Eye exam: Present: normal appearance, sclera anicteric - Neck Neck exam general surgery: Present: normal inspection, trachea midline - Respiratory Respiratory exam: Present: CTAB - Cardiovascular Cardiovascular exam: Present: RRR, +S1, +S2 - GI/Abdominal GI/Abdominal exam: Present: normal bowel sounds, soft, no peritoneal signs. Absent: distended, firm, guarding - Extremities Exam Extremities exam: Present: warm. Absent: calf tenderness - Neurological Exam Neurological exam: Present: alert. Absent: oriented X3 (x2), facial droop, speech deficit - Skin Skin exam: Present: dry, intact, warm Results - Labs CBC & Chem 7: 11/05/17 04:25 11/05/17 04:25 Labs: Last Result Calcium 9.4 mg/dL (8.6-10.3) 11/05/17 04:25 Triglycerides 463 mg/dL (< 150) H 11/03/17 01:42 Entire Visit Hgb 11.2 g/dL (11.5-15.4) L 11/05/17 04:25 Hct 36.4 % (35.3-44.9) 11/05/17 04:25 PT 36.6 Seconds (9.4-12.1) H 11/05/17 04:25 Total Bilirubin 0.4 mg/dL (0.3-1.0) 11/02/17 20:38 AST 19 Units/L (13-39) 11/02/17 20:38 ALT 12 Units/L (7-52) 11/02/17 20:38 Lipase 39 Units/L (11-82) 11/02/17 20:38 - ABG ABG results: PT/INR, D-dimer PT 36.6 Seconds (9.4-12.1) H 11/05/17 04:25 - VTE Documentation of Mechanical Device: Graduated compression elastic hosiery Consult Discharge Plan - Plan Referrals: Agustina Orlando MD [Primary Care Provider] - <Octaviano Levy - Last Filed: 11/23/17 08:51> Date of Encounter: 11/05/17 - Time Spent With Patient Total time spent is greater than 50% in coordination of care (as documented) at patient's floor/unit and/or counseling patient: - Constitutional Vitals: Temp Pulse Resp BP Pulse Ox 97.6 F 51 12 137/77 99 11/07/17 11:00 11/07/17 11:00 11/07/17 11:00 11/07/17 11:00 11/07/17 11:00 Results - Labs CBC & Chem 7: 11/07/17 05:39 11/07/17 05:39 Labs: Last Result Calcium 9.3 mg/dL (8.6-10.3) 11/07/17 05:39 Triglycerides 463 mg/dL (< 150) H 11/03/17 01:42 Entire Visit Hgb 11.1 g/dL (11.5-15.4) L 11/07/17 05:39 Hct 34.9 % (35.3-44.9) L 11/07/17 05:39 PT 43.5 Seconds (9.4-12.1) H* 11/07/17 05:39 Total Bilirubin 0.4 mg/dL (0.3-1.0) 11/02/17 20:38 AST 19 Units/L (13-39) 11/02/17 20:38 ALT 12 Units/L (7-52) 11/02/17 20:38 Lipase 39 Units/L (11-82) 11/02/17 20:38 - ABG ABG results: PT/INR, D-dimer PT 43.5 Seconds (9.4-12.1) H* 11/07/17 05:39 - Attending Attestation I have personally performed a face to face evaluation on this patient. I have reviewed and agree with the care plan. History and Exam by me shows:
--- NOTE | 2017-11-05 11:14 | Internal Med Progress Note ---
Date of Encounter: 11/05/17 Time of Encounter: 09:35 - Assessment and plan (1) DM type 2 (diabetes mellitus, type 2) Current Visit: Yes Status: Chronic Assessment and plan: continue sliding scale started on pureed diet contiue basal and prandial insulin as well as correctional dose insulin Qualifiers: Diabetes mellitus rn long term care insulin use: without rn long term care use Diabetes mellitus complication status: with kidney complications Diabetes mellitus complication detail: with chronic kidney disease Chronic kidney disease stage : stage 4 (severe) Qualified Code(s): E11.22 - Type 2 diabetes mellitus with diabetic chronic kidney disease; N18.4 - Chronic kidney disease, stage 4 (severe ); N18.4 - Chronic kidney disease, stage 4 (severe); N18.4 - Chronic kidney disease, stage 4 (severe); N18.4 - Chronic kidney disease, stage 4 (severe) (2) Hypothyroidism Current Visit: Yes Status: Chronic Assessment and plan: continue home meds, resume home dose of clonidine Qualifiers: Hypothyroidism type: unspecified Qualified Code(s): E03.9 - Hypothyroidism , unspecified (3) Hyperlipidemia Current Visit: Yes Status: Chronic Assessment and plan: continue home meds, lipid panel noted, uncontrolled Qualifiers: Hyperlipidemia type: unspecified Qualified Code(s): E78.5 - Hyperlipidemia , unspecified (4) Jvorv-je-xrtvwaj kidney injury Current Visit: Yes Status: Acute Assessment and plan: Improved with IVF. Hx of CKD III, resume all home meds Qualifiers: Acute renal failure type: unspecified Chronic kidney disease stage: stage 4 (severe) Qualified Code(s): N17.9 - Acute kidney failure, unspecified; N18.4 - Chronic kidney disease, stage 4 (severe); N18.4 - Chronic kidney disease , stage 4 (severe); N18.4 - Chronic kidney disease, stage 4 (severe); N18.4 - Chronic kidney disease, stage 4 (severe) (5) HTN (hypertension) Current Visit: Yes Status: Chronic Assessment and plan: continue all home meds Qualifiers: Hypertension type: essential hypertension Qualified Code(s): I10 - Essential (primary) hypertension (6) Syncope Current Visit: Yes Status: Acute Assessment and plan: continue tele EKG shows bradycardia Reviewed 2 D Echo from 09/20 showed preserved LVEF 60-65%, mild LVH noticed Carotid doppler is pending TSH is WNL Follow remaining work up Head CT is negative Patient noted to be somnolent today-hold gabapentin and decrease dose of clonidine Qualifiers: Syncope type: unspecified Qualified Code(s): R55 - Syncope and collapse (7) Bradycardia Current Visit: Yes Status: Acute Assessment and plan: HR is acceptable between 40-61 Continue home meds Digoixn level is 1.0 (8) Constipation Current Visit: Yes Status: Chronic Assessment and plan: FOund on CT Still no BM Stated on AISHA senna 11/04 Add one time dose of lactulose this a.m Continue other management Qualifiers: Constipation type: unspecified constipation type Qualified Code(s): K59.00 - Constipation, unspecified (9) Dysphagia Current Visit: Yes Status: Acute Assessment and plan: Patient also has a history of dysphagia and underwent a barium swallow prior to admission on secondary panel, reports show severe esophageal pathology, rotation and retropulsion of dye throughout the esophagus with high risk for aspiration. There is a stricture/narrowing and above that the esophagus is dilated.. Dysmotility is also evident. She has a history of esophageal stricture status post dilatation in the remote past. GI eval noted EGD 11/04 showed obstructing Schatki ring with chronic gastritis Biopsy contraindicated due to INR of 3.4 Per GI, patient will be on pureed diet for life and for repeat EGD later when INR has been adressed and as outpatient Aspiration precautions Qualifiers: Dysphagia type: esophageal phase Qualified Code(s): R13.10 - Dysphagia, unspecified (10) CKD (chronic kidney disease) stage 4, GFR 15-29 ml/min Current Visit: Yes Status: Chronic - Time Spent With Patient Total time spent is greater than 50% in coordination of care (as documented) at patient's floor/unit and/or counseling patient: - Subjective Interval history: Seen and evaluated at the bedside. 10-year-old female resident who is admitted for syncope, constipation, acute on chronic kidney injury, dysphagia and bradycardia. NO new complains Hr has been controlled on current home emds Mild Uncontrolled HTN due to holdign Clonidine-will restart She is s/p EGD 11/04/17 with obstructive Schaztki ring noted, dilatation not done de to coumadin use and INR 3.4 She is tolerating pureed diet Per SW, she need to be prior authorized to return to SNF PTOT eval is pending - Constitutional Vitals: Temp Pulse Resp BP Pulse Ox 98.1 F 64 17 114/50 99 11/05/17 06:50 11/05/17 06:50 11/05/17 06:50 11/05/17 10:53 11/05/17 06:50 General appearance: Present: A&O X 3, no acute distress, answers questions appropriately - Head Head exam: Present: atraumatic, normocephalic - Eye Eye exam: Present: PERRL, conjuntiva pink, sclera anicteric Pupils: Present: PERRL - Neck Neck exam general surgery: Present: supple, trachea midline. Absent: lymphadenopathy - Respiratory Respiratory exam: Present: CTAB. Absent: accessory muscle use, rales, rhonchi, wheezes - Cardiovascular Cardiovascular exam: Present: RRR, +S1, +S2, systolic murmur. Absent: diastolic murmur, gallop, rubs - GI/Abdominal GI/Abdominal exam: Present: normal bowel sounds, soft, no peritoneal signs. Absent: distended, tenderness - Extremities Exam Extremities exam: Present: warm, radial pulses palpable and symmetrical. Absent : calf tenderness, cyanotic, pedal edema - Neurological Exam Neurological exam: Present: alert, CN II-XII intact, oriented X3, no focal deficits. Absent: pronater drift, facial droop, speech deficit - Skin Skin exam: Present: dry, intact Internal Medicine: Result - Labs CBC & Chem 7: 11/05/17 04:25 11/05/17 04:25 Labs: Short CBC 11/05/17 Range/Units 04:25 WBC 7.8 (4.3-11.1) K/mcL Hgb 11.2 L (11.5-15.4) g/dL Hct 36.4 (35.3-44.9) % Plt Count 180 (140-400) K/mcL Neutrophils # 5.1 (1.6-8.9) K/mcL BMP 11/05/17 04:25 Sodium 142 Potassium 4.1 Chloride 105 Carbon Dioxide 28 BUN 51 H Creatinine 1.94 H Glucose 79 Calcium 9.4 - ABG Interpretation ABG results: PT/INR, D-dimer PT 36.6 Seconds (9.4-12.1) H 11/05/17 04:25 - VTE Documentation of Mechanical Device: Graduated compression elastic hosiery Consult Discharge Plan - Plan Referrals: Agustina Orlando MD [Primary Care Provider] -
[2017-11-05] MEDS ORDERED: Lactulose Oral Soln 20 GM/30 ML UDC PO ONE (11:16)
[2017-11-05] MEDS: cloNIDine HCl 0.1 MG TABLET PO SCH ×2 (16:28→23:56)
[2017-11-06 07:34] LABS: Calcium 9.8 mg/dL (8.6-10.3); Potassium 4.8 mEq/L (3.5-5.1)
[2017-11-06 07:35] LABS: INR 3.3; Prothrombin Time 36.6 Seconds (9.4-12.1)
[2017-11-06] MEDS: Sennosides/Docusate Sodium TABLET PO SCH ×2 (09:55→22:46)
[2017-11-06] MEDS: Isosorbide MONOnitrate (24 HR) 60 MG TAB.ER.24H PO SCH (09:55)
[2017-11-06] MEDS: Cholecalciferol (D-3) 1,000 UNIT TABLET PO SCH (09:55)
[2017-11-06] MEDS: Metoprolol XL (24 HR) Succ 25 MG TAB.ER.24H PO SCH (09:55)
[2017-11-06] MEDS: Multivit/Ca/Min/Fe/FA 1 TAB TABLET PO SCH (09:56)
[2017-11-06] MEDS: Bumetanide 1 MG TABLET PO SCH (09:56)
[2017-11-06] MEDS: *HR* Digoxin 0.125 MG TABLET PO SCH (09:56)
[2017-11-06] MEDS: cloNIDine HCl 0.1 MG TABLET PO SCH ×4 (09:56→22:46)
--- NOTE | 2017-11-06 10:59 | Internal Med Progress Note ---
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 insulin use: without intermediate use Diabetes mellitus complication status: with kidney complications Diabetes mellitus complication detail: with chronic kidney disease Chronic kidney disease stage : stage 4 (severe) Qualified Code(s): E11.22 - Type 2 diabetes mellitus with diabetic chronic kidney disease; N18.4 - Chronic kidney disease, stage 4 (severe ); N18.4 - Chronic kidney disease, stage 4 (severe); N18.4 - Chronic kidney disease, stage 4 (severe); N18.4 - Chronic kidney disease, stage 4 (severe) (2) Hypothyroidism Current Visit: Yes Status: Chronic Assessment and plan: continue home meds Qualifiers: Hypothyroidism type: unspecified Qualified Code(s): E03.9 - Hypothyroidism , unspecified (3) Hyperlipidemia Current Visit: Yes Status: Chronic Assessment and plan: continue home meds, lipid panel noted, uncontrolled Qualifiers: Hyperlipidemia type: unspecified Qualified Code(s): E78.5 - Hyperlipidemia , unspecified (4) Qxymh-mx-nwxegfp kidney injury Current Visit: Yes Status: Resolved Assessment and plan: Improved with IVF. Hx of CKD III, continue all home meds Qualifiers: Acute renal failure type: unspecified Chronic kidney disease stage: stage 4 (severe) Qualified Code(s): N17.9 - Acute kidney failure, unspecified; N18.4 - Chronic kidney disease, stage 4 (severe); N18.4 - Chronic kidney disease , stage 4 (severe); N18.4 - Chronic kidney disease, stage 4 (severe); N18.4 - Chronic kidney disease, stage 4 (severe) (5) HTN (hypertension) Current Visit: Yes Status: Chronic Assessment and plan: continue all home meds Qualifiers: Hypertension type: essential hypertension Qualified Code(s): I10 - Essential (primary) hypertension (6) Syncope Current Visit: Yes Status: Acute Assessment and plan: continue tele EKG shows bradycardia Reviewed 2 D Echo from 09/20 showed preserved LVEF 60-65%, mild LVH noticed Carotid doppler is pending TSH is WNL Follow remaining work up Head CT is negative Patient noted to be somnolent 11/05, more awake and conversant this a.m, continue to hold gabapentin Qualifiers: Syncope type: unspecified Qualified Code(s): R55 - Syncope and collapse (7) Bradycardia Current Visit: Yes Status: Resolved Assessment and plan: HR is acceptable between 40-61 Continue home meds Digoixn level is 1.0 (8) Constipation Current Visit: Yes Status: Chronic Assessment and plan: FOund on CT Still no BM Stated on AISHA senna 11/04 Add one time dose of lactulose this a.m Continue other management Qualifiers: Constipation type: unspecified constipation type Qualified Code(s): K59.00 - Constipation, unspecified (9) Dysphagia Current Visit: Yes Status: Acute Assessment and plan: Patient also has a history of dysphagia and underwent a barium swallow prior to admission on secondary panel, reports show severe esophageal pathology, rotation and retropulsion of dye throughout the esophagus with high risk for aspiration. There is a stricture/narrowing and above that the esophagus is dilated.. Dysmotility is also evident. She has a history of esophageal stricture status post dilatation in the remote past. GI eval noted EGD 11/04 showed obstructing Schatki ring with chronic gastritis Biopsy contraindicated due to INR of 3.4 Per GI, patient will be on pureed diet for life and for repeat EGD later when INR has been addressed and as outpatient Aspiration precautions Qualifiers: Dysphagia type: esophageal phase Qualified Code(s): R13.10 - Dysphagia, unspecified (10) CKD (chronic kidney disease) stage 4, GFR 15-29 ml/min Current Visit: Yes Status: Chronic Assessment and plan: renal function at baseline, continue to monitor - Time Spent With Patient Total time spent is greater than 50% in coordination of care (as documented) at patient's floor/unit and/or counseling patient: - Subjective Interval history: Seen and evaluated at the bedside. 10-year-old female resident who is admitted for syncope, constipation, acute on chronic kidney injury, dysphagia and bradycardia. Hr has been controlled on current home emds She is s/p EGD 11/04/17 with obstructive Schaztki ring noted, dilatation not done de to coumadin use and INR 3.4 She is tolerating pureed diet Per SW, she need to be prior authorized to return to SNF PTOT eval noted This morning,the patient is more cheerful and conversant She denies new complains when asked about her somnolence when at the SNF, as her daughter had complained that the patient sleeps a lot, she reported "I'm jut so sick and cannot do anything about it". When asked if she was depressed she stated "a little", she denies suicidal or homidical ideation. We will start her on trazodone low dose, continue to hold gabapentin, awaiting prior auth, otherwise medically stable to be discharged back to the [facility] - Constitutional Vitals: Temp Pulse Resp BP Pulse Ox 98.6 F 60 15 112/67 99 11/06/17 10:39 11/06/17 10:39 11/06/17 10:39 11/06/17 10:39 11/06/17 10:39 General appearance: Present: A&O X 3, no acute distress, answers questions appropriately - Head Head exam: Present: atraumatic, normocephalic - Eye Eye exam: Present: PERRL, conjuntiva pink, sclera anicteric Pupils: Present: PERRL - Neck Neck exam general surgery: Present: supple, trachea midline. Absent: lymphadenopathy - Respiratory Respiratory exam: Present: CTAB. Absent: accessory muscle use, rales, rhonchi, wheezes - Cardiovascular Cardiovascular exam: Present: RRR, +S1, +S2. Absent: diastolic murmur, gallop, rubs, systolic murmur - GI/Abdominal GI/Abdominal exam: Present: normal bowel sounds, soft, no peritoneal signs. Absent: distended, tenderness - Extremities Exam Extremities exam: Present: warm, radial pulses palpable and symmetrical. Absent : calf tenderness, cyanotic, pedal edema - Neurological Exam Neurological exam: Present: alert, CN II-XII intact, oriented X3, no focal deficits. Absent: pronater drift, facial droop, speech deficit - Skin Skin exam: Present: dry, intact Internal Medicine: Result - Labs CBC & Chem 7: 11/05/17 04:25 11/06/17 06:46 Labs: BMP 11/06/17 06:46 Sodium 142 Potassium 4.8 Chloride 102 Carbon Dioxide 29 BUN 47 H Creatinine 2.14 H Glucose 95 Calcium 9.8 - ABG Interpretation ABG results: PT/INR, D-dimer PT 36.6 Seconds (9.4-12.1) H 11/06/17 06:46 - VTE Documentation of Mechanical Device: Graduated compression elastic hosiery Consult Discharge Plan - Plan Referrals: Agustina Orlando MD [Primary Care Provider] -
[2017-11-06] MEDS ORDERED: Lactulose Oral Soln 20 GM/30 ML UDC PO ONE (11:01)
[2017-11-06] MEDS ORDERED: 0.9 % Sodium Chloride 500 ML ONE (11:47)
[2017-11-06] MEDS ORDERED: traZODone 50 MG TABLET PO SCH (21:00)
[2017-11-07 06:17] LABS: Hematocrit 34.9 % (35.3-44.9); Hemoglobin 11.1 g/dL (11.5-15.4); Mean Corpuscular HGB Conc 31.8 g/dL (31.6-35.5); Mean Corpuscular Hemoglobin 30.8 pg (28.0-33.3); Mean Corpuscular Volume 96.9 fL (83.0-100.0); Platelet Count 160 K/mcL (140-400); Red Cell Distribution Width 17.9 % (11.5-14.5)
[2017-11-07 06:18] LABS: Basophils % 0.4 %; Eosinophils # 0.3 K/mcL (0.0-0.6); Eosinophils % 4.6 %; Immature Granulocytes % 0.6 % (0-4); Lymphocytes % 28.6 %; Mean Platelet Volume 10.9 fL (9.4-12.4); Monocytes # 0.5 K/mcL (0.0-1.3); Monocytes % 6.9 %; Neutrophils # 4.2 K/mcL (1.6-8.9); Segmented Neutrophils % 58.9 %
[2017-11-07 06:22] LABS: INR 3.9
[2017-11-07 06:30] LABS: Prothrombin Time 43.5 Seconds (9.4-12.1)
[2017-11-07 06:34] LABS: Calcium 9.3 mg/dL (8.6-10.3); Potassium 4.5 mEq/L (3.5-5.1)
[2017-11-07] MEDS: Multivit/Ca/Min/Fe/FA 1 TAB TABLET PO SCH (09:33)
[2017-11-07] MEDS: Sennosides/Docusate Sodium TABLET PO SCH (09:34)
[2017-11-07] MEDS: Cholecalciferol (D-3) 1,000 UNIT TABLET PO SCH (09:35)
[2017-11-07] MEDS: Bumetanide 1 MG TABLET PO SCH (09:42)
[2017-11-07] MEDS: cloNIDine HCl 0.1 MG TABLET PO SCH (09:42)
[2017-11-07] MEDS: Isosorbide MONOnitrate (24 HR) 60 MG TAB.ER.24H PO SCH (09:43)
[2017-11-07] MEDS: Metoprolol XL (24 HR) Succ 25 MG TAB.ER.24H PO SCH (09:43)
[2017-11-07 11:39] VITALS: BP 137/77
--- NOTE | 2017-11-07 11:51 | Discharge Summary ---
- NOTES TO OUTPATIENT PROVIDER Notes to Outpatient Provider: Follow-up with gastroenterology for repeat EGD, and esophageal dilatation,. Clonidine dose has been decreased from 0.6 every 8 hours to 0.3 every 8 hours. Referring has been held throughout this admission as patient's INR ranged from 3.3-3.5 without Coumadin. Continue to hold Coumadin, check INR routinely. Resume Coumadin when INR is therapeutic. Patient has been started on trazoodne for depression. Gabapentin and Hydrocordone-Acetaminophen was discontinued for continued somnolence Orders not resulted at time of discharge: Pending orders 11/08/17 04:00 PT/INR [Prothrombin Time INR] [COAG] AM 0400 11/09/17 04:00 PT/INR [Prothrombin Time INR] [COAG] AM 0400 11/10/17 04:00 PT/INR [Prothrombin Time INR] [COAG] AM 0400 Date of Encounter: 11/07/17 Time of Encounter: 11:48 - Discharge Diagnosis (1) DM type 2 (diabetes mellitus, type 2) Priority: Secondary Status: Chronic Comments: Patient's fingersticks were normal throughout admission and did not require insulin. Qualifiers: Diabetes mellitus manager long term care insulin use: without manager long term care use Diabetes mellitus complication status: with kidney complications Diabetes mellitus complication detail: with chronic kidney disease Chronic kidney disease stage : stage 4 (severe) Qualified Code(s): E11.22 - Type 2 diabetes mellitus with diabetic chronic kidney disease; N18.4 - Chronic kidney disease, stage 4 (severe ); N18.4 - Chronic kidney disease, stage 4 (severe); N18.4 - Chronic kidney disease, stage 4 (severe); N18.4 - Chronic kidney disease, stage 4 (severe) (2) Hypothyroidism Priority: Secondary Status: Chronic Comments: Chronic and stable. Continue current dose of Synthroid. Qualifiers: Hypothyroidism type: unspecified Qualified Code(s): E03.9 - Hypothyroidism , unspecified (3) Hyperlipidemia Priority: Secondary Status: Chronic Comments: Lipid panel showed total control, continue pravastatin dose. Qualifiers: Hyperlipidemia type: unspecified Qualified Code(s): E78.5 - Hyperlipidemia , unspecified (4) Svldc-qu-vvsevxp kidney injury Priority: Primary Status: Resolved Comments: Patient with stage IV kidney disease at baseline. Acute kidney injury resolved with IV fluid hydration. Qualifiers: Acute renal failure type: unspecified Chronic kidney disease stage: stage 4 (severe) Qualified Code(s): N17.9 - Acute kidney failure, unspecified; N18.4 - Chronic kidney disease, stage 4 (severe); N18.4 - Chronic kidney disease , stage 4 (severe); N18.4 - Chronic kidney disease, stage 4 (severe); N18.4 - Chronic kidney disease, stage 4 (severe) (5) HTN (hypertension) Priority: Secondary Status: Chronic Comments: controlled on current meds All home meds were continued, however, clonidine was changed to 0.3 mg q8hr due to low blood pressures on home dose of 0.6 q8hr Qualifiers: Hypertension type: essential hypertension Qualified Code(s): I10 - Essential (primary) hypertension (6) Syncope Priority: Primary Status: Acute Comments: Possibly orthostatic EKG shows bradycardia Reviewed 2 D Echo from 09/20 showed preserved LVEF 60-65%, mild LVH noticed Carotid doppler is negative TSH is WNL Head CT is negative Blood pressure medication adjusted Qualifiers: Syncope type: unspecified Qualified Code(s): R55 - Syncope and collapse (7) Bradycardia Priority: Primary Status: Resolved (8) Constipation Priority: Secondary Status: Chronic Comments: continue laxatives at home Qualifiers: Constipation type: unspecified constipation type Qualified Code(s): K59.00 - Constipation, unspecified (9) Dysphagia Priority: Primary Status: Acute Comments: Patient also has a history of dysphagia and underwent a barium swallow prior to admission on secondary panel, reports show severe esophageal pathology, rotation and retropulsion of dye throughout the esophagus with high risk for aspiration. There is a stricture/narrowing and above that the esophagus is dilated to 10. Dysmotility is also evident. She has a history of esophageal stricture status post dilatation in the remote past. EGD done 11/04 showed obstructing Schatki ring with chronic gastritis Biopsy contraindicated due to INR of 3.4 Per GI, patient will be on pureed diet for life and for repeat EGD later when INR has been adressed and as outpatient Aspiration precautions Follow up with GI as outpatient Qualifiers: Dysphagia type: esophageal phase Qualified Code(s): R13.10 - Dysphagia, unspecified (10) CKD (chronic kidney disease) stage 4, GFR 15-29 ml/min Priority: Secondary Status: Chronic Hospital course: Ms. Flowers is a 82 year old female with dysphagis, CKD IV, HLD, HTN, DM, admitted following an episode of syncope and weakness Syncope is multifactorial: Low blood pressure with home dose of meds, jackie onckd , possible orthostasit. Work up was negative For chronic dysphagia, EGD showed obstrcuting Schaztki ring with esophageal strciture-GI recommends pureed diet till dilatation occurs when INR is sub- therapeutic INR throughout stay was 3.3-3.9 without any coumadin, this is possibly due to Vit K deficiency due to poor oral intake, continue to monitor in the longterm and resume coumadin when therapeutic, no bleeding in the hospital, HB is stable Home dose of Clonidine is decreased to 0.3 from 0.6 [place] and [place] has been discontinued Medically stable to be transferred back to SNF Discharge discussed with: patient, nurse - Time Spent with Patient Total time spent providing and/or coordinating discharge services: Greater than 30 minutes - Discharge Medications Home Medications: Allopurinol [Zyloprim] 300 mg PO DAILY #0 04/01/17 [History] Cranberry Conc/C/Bacill Coag [Cranberry Tablet] 1 each PO DAILY 04/01/17 [ History] Atorvastatin [Lipitor] 80 mg PO DAILY tab 04/08/17 [Rx] Cholecalciferol (D-3) [Vitamin D] 1,000 unit PO DAILY tab 04/08/17 [Rx] Digoxin [Lanoxin] 0.125 mg PO QOD #15 tab 04/22/17 [Rx] Doxazosin [Cardura] 8 mg PO HS #60 tablet 04/22/17 [Rx] MOM Conc [MILK OF MAGNESIA conc] 10 ml PO Q48H ud.liq 08/12/17 [Rx] Methyl Salicylate/Menthol [Bengay] 1 appl TP BID PRN tube 08/12/17 [Rx] Acetaminophen [Tylenol] 500 mg PO Q6HR PRN 09/27/17 [History] Isosorbide MONOnitrate (24 HR) [Imdur] 60 mg PO DAILY tab.er.24h 09/27/17 [Rx] Levothyroxine [Synthroid] 100 mcg PO DAILY@0630 tablet 09/27/17 [Rx] Metoprolol XL (24 HR) Succ [Toprol Xl] 25 mg PO DAILY tab.er.24h 09/27/17 [Rx] Omeprazole [PriLOSEC] 20 mg PO DAILY@0630 PRN capsule. 09/27/17 [Rx] Bumetanide [Bumex] 1 mg PO DAILY 11/03/17 [History] Multivit-Min/FA/Lycopen/Lutein [A Thru Z Select Multivit Tab] 1 tab PO DAILY 10/18 [History] Polyethylene Glycol 3350 [MiraLAX] 17 gm PO DAILY powd.pack 11/07/17 [Rx] Sennosides/Docusate Sodium [Senna Plus] 2 each PO BID tablet 11/07/17 [Rx] cloNIDine HCl [CloNIDine HCl] 0.3 mg PO Q8HR tablet 11/07/17 [Rx] traZODone [TraZODone] 50 mg PO HS tablet 11/07/17 [Rx] Allergies/Adverse Reactions: 3 Allergy/AdvReac Type Severity Reaction Status Date / Time ibuprofen [From Motrin IB] AdvReac Hives Verified 03/31/17 09:24 Sulfa (Sulfonamide AdvReac Hives Verified 03/31/17 09:24 Antibiotics) Date of admission: 11/02/17 23:09 Primary care physician: Agustina Orlando Consults: 11/03/17 01:01 Consult to Nutrition [CONS] Routine Comment: Consulting Provider: NUTRITION Reason for Dietary Consult: MST Score Other:: Patient had barium swallow 11/02. Consult to Mail Forwarding System Markup Clerk [CONS] Routine Reason for SW Consult: Patient from SNF for rehab at [facility]. Wears oxygen at the facility. 11/03/17 11:19 Consult to Gastroenterology [CONS] Routine Consulting Provider: Gastroenterology Raquel Reason for Consult: Esophageal stricture , dilatation, dysphagia Call Completed: Yes 11/05/17 09:21 Consult to Physical Therapy [CONS] Routine Comment: Evaluate, develop and implement POC Reason for Consult: Need PT/OT eval for prior auth for pt to return to ECF Does patient have active BEDREST order?: No Is patient medically & hemodynamically stable?: Yes Patient assessed for mobility or mobilized this visit?: No 11/05/17 09:22 Consult to Occupational Therapy [CONS] Routine Comment: Evaluate, develop and implement POC Reason for Consult: Need PT/OT eval for prior auth for pt to return to ecf Does patient have active BEDREST order?: No Is patient medically & hemodynamically stable?: Yes Patient assessed for mobility or mobilized this visit?: No Discharging clinician: Bismark Polo Anticipated date of discharge: 11/07/17 - Constitutional Vitals: Temp Pulse Resp BP Pulse Ox 97.6 F 51 12 137/77 99 11/07/17 11:00 11/07/17 11:00 11/07/17 11:00 11/07/17 11:00 11/07/17 11:00 General appearance: Present: A&O X 3, no acute distress, answers questions appropriately - Head Head exam: Present: atraumatic, normocephalic - Eye Eye exam: Present: PERRL, conjuntiva pink, sclera anicteric Pupils: Present: PERRL - Neck Neck exam general surgery: Present: supple, trachea midline. Absent: lymphadenopathy - Respiratory Respiratory exam: Present: CTAB. Absent: accessory muscle use, rales, rhonchi, wheezes - Cardiovascular Cardiovascular exam: Present: RRR, +S1, +S2, systolic murmur. Absent: diastolic murmur, gallop, rubs - GI/Abdominal GI/Abdominal exam: Present: normal bowel sounds, soft, no peritoneal signs. Absent: distended, tenderness - Extremities Exam Extremities exam: Present: warm, radial pulses palpable and symmetrical. Absent : calf tenderness, cyanotic, pedal edema - Neurological Exam Neurological exam: Present: alert, CN II-XII intact, oriented X3, no focal deficits. Absent: pronater drift, facial droop, speech deficit - Skin Skin exam: Present: dry, intact - Patient Status Disposition: Transfer SNF Condition: Good Functional capacity at discharge: bed bound Overall status at discharge: patient is progressing back to baseline - Discharge Instructions Follow Up With: Agustina Orlando MD [Primary Care Provider] - Forms: ED Satisfaction Letter, Work/School Release - Diet and Activity Activity: as per physical therapy Diet: other (pureed) - VTE Documentation of Mechanical Device: Graduated compression elastic hosiery
--- NOTE | 2017-11-07 12:00 | Physician Discharge Referral ---
ExtendedCare Referral Info Transfer To: SNF/ECF Provider in Charge: Raza Polo Provider in Charge after Transfer: PCP Institutional Level of Care: Skilled - Diagnosis (1) DM type 2 (diabetes mellitus, type 2) Priority: Secondary Status: Chronic (2) Hypothyroidism Priority: Secondary Status: Chronic (3) Hyperlipidemia Priority: Secondary Status: Chronic (4) [id number] kidney injury Priority: Primary Status: Resolved (5) HTN (hypertension) Priority: Secondary Status: Chronic (6) Syncope Priority: Primary Status: Acute (7) Bradycardia Priority: Secondary Status: Resolved (8) Constipation Priority: Secondary Status: Chronic (9) Dysphagia Priority: Primary Status: Acute (10) CKD (chronic kidney disease) stage 4, GFR 15-29 ml/min Priority: Secondary Status: Chronic Prognosis: Fair Aware of Diagnosis: Patient, Family Aware of Prognosis: Patient, Family - Transfer Medications Home Medications: Allopurinol [Zyloprim] 300 mg PO DAILY #0 04/01/17 [History] Cranberry Conc/C/Bacill Coag [Cranberry Tablet] 1 each PO DAILY 04/01/17 [ History] Atorvastatin [Lipitor] 80 mg PO DAILY tab 04/08/17 [Rx] Cholecalciferol (D-3) [Vitamin D] 1,000 unit PO DAILY tab 04/08/17 [Rx] Digoxin [Lanoxin] 0.125 mg PO QOD #15 tab 04/22/17 [Rx] Doxazosin [Cardura] 8 mg PO HS #60 tablet 04/22/17 [Rx] MOM Conc [MILK OF MAGNESIA conc] 10 ml PO Q48H ud.liq 08/12/17 [Rx] Methyl Salicylate/Menthol [Bengay] 1 appl TP BID PRN tube 08/12/17 [Rx] Acetaminophen [Tylenol] 500 mg PO Q6HR PRN 09/27/17 [History] Isosorbide MONOnitrate (24 HR) [Imdur] 60 mg PO DAILY tab.er.24h 09/27/17 [Rx] Levothyroxine [Synthroid] 100 mcg PO DAILY@0630 tablet 09/27/17 [Rx] Metoprolol XL (24 HR) Succ [Toprol Xl] 25 mg PO DAILY tab.er.24h 09/27/17 [Rx] Omeprazole [PriLOSEC] 20 mg PO DAILY@0630 PRN capsule. 09/27/17 [Rx] Bumetanide [Bumex] 1 mg PO DAILY 11/03/17 [History] Multivit-Min/FA/Lycopen/Lutein [A Thru Z Select Multivit Tab] 1 tab PO DAILY 10/18 [History] Polyethylene Glycol 3350 [MiraLAX] 17 gm PO DAILY powd.pack 11/07/17 [Rx] Sennosides/Docusate Sodium [Senna Plus] 2 each PO BID tablet 11/07/17 [Rx] cloNIDine HCl [CloNIDine HCl] 0.3 mg PO Q8HR tablet 11/07/17 [Rx] traZODone [TraZODone] 50 mg PO HS tablet 11/07/17 [Rx] Allergies/Adverse Reactions: 3 Allergy/AdvReac Type Severity Reaction Status Date / Time ibuprofen [From Motrin IB] AdvReac Hives Verified 03/31/17 09:24 Sulfa (Sulfonamide AdvReac Hives Verified 03/31/17 09:24 Antibiotics) - Respiratory Orders Smoking Cessation: Smoking cessation has been advised. For more information, call the [place] Tobacco Quit Line at 3-891-WOAI-NOW. - Advance Directives Code Status: Full Code - Mobility Orders Other (per PT) - Rehabiliation Orders Rehab Potential: Poor - Diet Orders Pureed CERTIFICATION: I certify that the transfer of the above named patient to an Extended Care Facility is necessary for the continuing treatment of the diagnosis listed. The above information is true and accurate reflection of patient's current condition. Confidential - Redisclosure prohibited without a patient's written consent.
== END 2017-11-07 13:50 ==
LOC: 3ANU 19:47 → EMEROO 19:47 → SUATTDRO 23:09 → 3ANU 23:37
PROVIDERS: ADMIT Internal Medicine; ATTEND Internal Medicine